=== PATIENT | male | born 1965 | race Caucasian/White ===

== ENCOUNTER 2024-11-06 12:05 | Observation (INO) ==
[2024-11-06] MEDS: NS 1,000 ML IV 1,000 ML IV SCH (14:00)
[2024-11-06 14:04] LABS: BASOPHILS % (AUTO) 0.3 % (0.2-1.0); EOSINOPHILS # (AUTO) 0.1 x10^3/uL (0.0-0.2); EOSINOPHILS % (AUTO) 0.7 % (0.9-2.9); HEMATOCRIT 45.8 % (42.0-54.0); HEMOGLOBIN 15.9 g/dL (13.5-18.0); LYMPHOCYTES # (AUTO) 2.5 X10^3/uL (1.3-2.9); LYMPHOCYTES % (AUTO) 27.2 % (21.0-51.0); MEAN CORPUSCULAR HEMOGLOBIN 32.3 pg (27.0-34.0); MEAN CORPUSCULAR HGB CONC 34.8 g/dL (33.0-35.0); MEAN CORPUSCULAR VOLUME 92.8 fL (80.0-100.0); MEAN PLATELET VOLUME 9.8 fL (7.4-11.0); MONOCYTES # (AUTO) 0.4 x10^3/uL (0.3-0.8); MONOCYTES % (AUTO) 4.7 % (0.0-13.0); NEUTROPHILS # (AUTO) 6.2 x10^3/uL (2.2-4.8); NEUTROPHILS % (AUTO) 67.1 % (42.0-75.0); PLATELET COUNT 85 X10^3/uL (150.0-450.0); RED BLOOD COUNT 4.94 X10^6/uL (4.7-6.0); RED CELL DISTRIBUTION WIDTH 13.5 % (11.6-16.5); WHITE BLOOD COUNT 9.2 X10^3/uL (3.6-10.0)
[2024-11-06] MEDS: CLEOCIN 600 MG IV PREMIX 600 MG/50 ML BAG IV SCH (14:14)
[2024-11-06 14:18] LABS: ALANINE AMINOTRANSFERASE 18 Units/L (12-78); ALBUMIN 3.5 g/dL (3.4-5.0); ALKALINE PHOSPHATASE 83 Units/L (46-116); ASPARTATE AMINO TRANSFERASE 15 Units/L (15-37); BLOOD UREA NITROGEN 16 mg/dL (7-18); CALCIUM 9.3 mg/dL (8.5-10.1); CARBON DIOXIDE 26.6 mmol/L (21-32); CHLORIDE 101 mmol/L (98-107); CREATININE 1.11 mg/dL (0.70-1.30); GLUCOSE 107 mg/dL (65-99); POTASSIUM 3.7 mmol/L (3.5-5.1); SODIUM 136 mmol/L (136-145); TOTAL PROTEIN 7.1 g/dL (6.4-8.2); eGFR NON BLACK RACES > 60 (>60)
--- NOTE | 2024-11-06 15:28 | CT ---
EXAM:SOFT TISSUE NECK W/O CONHISTORY:ABCESS TO NECK,; back of neck marked with bbCOMPARISON:CT neck 11/06/2020TECHNIQUE:Multiple axial images of the neck soft tissues were obtained without IV contrast. Coronal and sagittal reformats were made and reviewed. Dose reduction techniques included Automated Exposure Control (AEC) and adjustment of mA and kV.FINDINGS:A BB marker was placed at the site of abnormality.Increased density is seen in the subcutaneous tissue of the posterior upper neck at the site of BB markers. The finding likely represents superficial cellulitis. There is no emphysema in the soft tissues. No focal fluid collection to suggest an abscess.There is a small round fluid collection more laterally toward the left side within the subcutaneous tissue which measures about 13 mm. This was present in 2020 but is slightly larger, measuring 7 mm previously. This is likely an epidermal inclusion cyst.Adenoids, tonsils, soft palate, epiglottis, and prevertebral soft tissues are not enlarged. In general there is preservation of the pharyngeal and tracheal airways. Vocal cords are symmetric.Parotid glands and submandibular glands have normal size and density. The thyroid has a normal size and configuration. There is no neck mass or enlarged lymph nodes. There are numerous small lymph nodes bilaterally. These have decreased in size and number since the study from 2020.The lung apices are clear. Calcifications are seen in the right and left carotid arteries. No fluid in the sinuses or mucosal thickening to suggest sinusitis. There is no mastoid effusion.Degenerative spondylitic changes are present in the spine.IMPRESSION:1. Superficial cellulitis the posterior midline neck without abscessTHIS IS AN ELECTRONICALLY VERIFIED FINAL REPORT11/06/2024 3:13 PM - Electronically signed by Nathan Bonilla MD
[2024-11-06] MEDS: NORCO 7.5/325 MG TAB PO PRN (15:36)
--- NOTE | 2024-11-06 17:35 | DR.H&P ---
H&P History & Physical for Day of: H&P Date: 11/06/24 Chief Complaint Chief Complaint: PAINFUL SORES TO NECK WITH REDNESS AND BOIL ON CHEST History of Present Illness History of Present Illness: PT IS 59 WM, DIRECT ADMIT FROM DR ANDERSEN OFFICE WITH ABSCESS FORMATION TO BASE OF HAIRLINE AND POSTERIOR NECK WITH DIFFUSE REDNESS AND INCREASE WARMTH ONSET ABOUT 5 DAYS AGO. PT HAS ABSCESS TO ANTERIOR CHEST WALL WITH PURULENT DISCHARGE. PT CO LOW GRADE FEVER. PT WAS STARTED ON BACTRIM OVER THE WEEKEND. PT HAS PMH OF CLL. Past Medical History Past Medical History: Dyslipidemia Family History Family Medical History: Cancer, [place] and Heart Failure Social History Does patient currently use any type of tobacco product: Yes Type of Tobacco Use: Cigarettes How many years tobacco product used: 40 Alcohol Use: Occasionally Drug Use: None Medications Home Medications: Home Medications Medication Instructions Recorded Confirmed Type atorvastatin 10 mg tablet 10 mg PO QDAY 11/06/24 11/06/24 History fenofibrate micronized 134 mg 134 mg PO QDAY 11/06/24 11/06/24 History capsule hydrocodone 10 mg-acetaminophen 1 tab PO BID PRN 11/06/24 11/06/24 History 325 mg tablet meloxicam 15 mg tablet 15 mg PO QDAY 11/06/24 11/06/24 History zolpidem 12.5 mg tablet,extended 12.5 mg PO QPM PRN 11/06/24 11/06/24 History release,multiphase Allergies Allergies Allergy/AdvReac Type Severity Reaction Status Date / Time No Known Drug Allergies Allergy Verified 11/06/24 15:20 Labs 11/06/24 13:38 11/06/24 13:38 Labs: Laboratory WBC 9.2 X10^3/uL (3.6-10.0) 11/06/24 13:38 RBC 4.94 X10^6/uL (4.7-6.0) 11/06/24 13:38 Hgb 15.9 g/dL (13.5-18.0) 11/06/24 13:38 Hct 45.8 % (42.0-54.0) 11/06/24 13:38 MCV 92.8 fL (80.0-100.0) 11/06/24 13:38 MCH 32.3 pg (27.0-34.0) 11/06/24 13:38 MCHC 34.8 g/dL (33.0-35.0) 11/06/24 13:38 RDW 13.5 % (11.6-16.5) 11/06/24 13:38 Plt Count 85 X10^3/uL (150.0-450.0) L 11/06/24 13:38 MPV 9.8 fL (7.4-11.0) 11/06/24 13:38 Neut % (Auto) 67.1 % (42.0-75.0) 11/06/24 13:38 Lymph % (Auto) 27.2 % (21.0-51.0) 11/06/24 13:38 [place] % (Auto) 4.7 % (0.0-13.0) 11/06/24 13:38 Eos % (Auto) 0.7 % (0.9-2.9) L 11/06/24 13:38 Baso % (Auto) 0.3 % (0.2-1.0) 11/06/24 13:38 Neut # (Auto) 6.2 x10^3/uL (2.2-4.8) H 11/06/24 13:38 Lymph # (Auto) 2.5 X10^3/uL (1.3-2.9) 11/06/24 13:38 [place] # (Auto) 0.4 x10^3/uL (0.3-0.8) 11/06/24 13:38 Eos # (Auto) 0.1 x10^3/uL (0.0-0.2) 11/06/24 13:38 Baso # (Auto) 0.0 X10^3/uL (0.0-0.1) 11/06/24 13:38 Absolute Nucleated RBC 0.3 /100WBC 11/06/24 13:38 Sodium 136 mmol/L (136-145) 11/06/24 13:38 Corrected Sodium TNP 11/06/24 13:38 Potassium 3.7 mmol/L (3.5-5.1) 11/06/24 13:38 Chloride 101 mmol/L (98-107) 11/06/24 13:38 Carbon Dioxide 26.6 mmol/L (21-32) 11/06/24 13:38 BUN 16 mg/dL (7-18) 11/06/24 13:38 Creatinine 1.11 mg/dL (0.70-1.30) 11/06/24 13:38 Est GFR (MDRD) Af Amer > 60 (>60) 11/06/24 13:38 Est GFR (MDRD) Non-Af > 60 (>60) 11/06/24 13:38 Glucose 107 mg/dL (65-99) H 11/06/24 13:38 Calcium 9.3 mg/dL (8.5-10.1) 11/06/24 13:38 Corrected Calcium TNP 11/06/24 13:38 Total Bilirubin 0.20 mg/dL (0.2-1.0) 11/06/24 13:38 AST 15 Units/L (15-37) 11/06/24 13:38 ALT 18 Units/L (12-78) 11/06/24 13:38 Alkaline Phosphatase 83 Units/L (46-116) 11/06/24 13:38 Total Protein 7.1 g/dL (6.4-8.2) 11/06/24 13:38 Albumin 3.5 g/dL (3.4-5.0) 11/06/24 13:38 Globulin 3.6 g/dL (2.5-4.5) 11/06/24 13:38 Albumin/Globulin Ratio 1.0 Ratio (1.1-2.1) L 11/06/24 13:38 Review of Systems Constitutional: Fever, Chills and Weakness Eyes: No Symptoms Reported ENT: No Symptoms Reported Respiratory: No Symptoms Reported Cardiovascular: No Symptoms Reported Gastrointestinal: No Symptoms Reported Genitourinary: No Symptoms Reported Musculoskeletal: Back Pain Skin: Rash Neurological: No Symptoms Reported Physical Exam Vital Signs: Vital Signs Temperature 97.1 F Pulse Rate [Left Brachial] 88 Respiratory Rate 20 Respiratory Rate 18 Blood Pressure [Left Arm] 162/79 O2 Sat by Pulse Oximetry 99 Oriented: Normal Eyes: Normal Ear: Normal Nose: Normal Throat: Normal Respiratory: RLL Diminished and LLL Diminished Cardiovascular: Normal Auscultation: Bowel Sounds: Normal Palpation: Normal Tenderness: Normal Skin: Decreased [place], Red, Tender, Hot and Wound (OCCIPITAL, POST. CERVICAL A ND CENTRAL CHEST WALL) Musculoskeletal: Back:Lumbar Psychiatric: Anxiety Mood Description: Anxious Affect: Normal Speech Pattern: Clear and Appropriate Assessment/Plan (1) Cellulitis and abscess of head: Status: Acute Plan: ADMIT, BLOOD AND WOUND CULTURES ON ADMISSION IV HYDRATION PAIN CONTROL, IV ATBX THERAPY ADMISSION LABS, PT IS HOLD ORAL CHEMO DIRECTED BY ONCO. (2) Abscess of chest wall: Status: Acute (3) Cellulitis, neck: Status: Acute (4) CLL (chronic lymphocytic leukemia): Narrative Support Text: UNDER DR HARDY IN [place] Status: Acute
[2024-11-06] MEDS: NORCO 7.5/325 MG TAB ONE (18:18)
[2024-11-06] MEDS: NICOTINE PATCH TD SCH (19:16)
[2024-11-06] MEDS: CHECK PATCH XX SCH (21:04)
[2024-11-06] MEDS: ZOLPIDEM 12.5 MG PO SCH (21:52)
[2024-11-06] MEDS: EXT PO SCH (21:52)
[2024-11-07] MEDS ORDERED: TYLENOL 325 MG TAB PO PRN (03:21)
[2024-11-07] MEDS: NORCO 10/325 TAB PO PRN (03:42)
[2024-11-07 06:13] LABS: BASOPHILS % (AUTO) 0.4 % (0.2-1.0); EOSINOPHILS # (AUTO) 0.1 x10^3/uL (0.0-0.2); EOSINOPHILS % (AUTO) 1.3 % (0.9-2.9); HEMATOCRIT 42.5 % (42.0-54.0); HEMOGLOBIN 14.9 g/dL (13.5-18.0); LYMPHOCYTES # (AUTO) 1.1 X10^3/uL (1.3-2.9); LYMPHOCYTES % (AUTO) 16.6 % (21.0-51.0); MEAN CORPUSCULAR HEMOGLOBIN 32.3 pg (27.0-34.0); MEAN CORPUSCULAR HGB CONC 35.2 g/dL (33.0-35.0); MEAN CORPUSCULAR VOLUME 91.8 fL (80.0-100.0); MEAN PLATELET VOLUME 9.9 fL (7.4-11.0); MONOCYTES # (AUTO) 0.4 x10^3/uL (0.3-0.8); MONOCYTES % (AUTO) 6.6 % (0.0-13.0); NEUTROPHILS # (AUTO) 4.9 x10^3/uL (2.2-4.8); NEUTROPHILS % (AUTO) 75.1 % (42.0-75.0); PLATELET COUNT 79 X10^3/uL (150.0-450.0); RED BLOOD COUNT 4.62 X10^6/uL (4.7-6.0); RED CELL DISTRIBUTION WIDTH 13.1 % (11.6-16.5); WHITE BLOOD COUNT 6.6 X10^3/uL (3.6-10.0)
[2024-11-07 06:41] LABS: ALANINE AMINOTRANSFERASE 22 Units/L (12-78); ALKALINE PHOSPHATASE 74 Units/L (46-116); ASPARTATE AMINO TRANSFERASE 13 Units/L (15-37); BLOOD UREA NITROGEN 13 mg/dL (7-18); CALCIUM 8.8 mg/dL (8.5-10.1); CARBON DIOXIDE 24.3 mmol/L (21-32); CHLORIDE 102 mmol/L (98-107); COR CA(FOR HYPOALB) 9.6 mg/dL (8.5-10.1); CREATININE 0.95 mg/dL (0.70-1.30); GLUCOSE 100 mg/dL (65-99); POTASSIUM 3.6 mmol/L (3.5-5.1); SODIUM 135 mmol/L (136-145); TOTAL PROTEIN 6.4 g/dL (6.4-8.2); eGFR NON BLACK RACES > 60 (>60)
[2024-11-07] MEDS: LIPITOR TAB 10 MG PO SCH (08:51)
[2024-11-07] MEDS ORDERED: ULTRAM PO PRN (14:05)
[2024-11-07] MEDS: MORPHINE SULFATE INJ 2 MG INJ IVP PRN (14:29)
[2024-11-07] MEDS: KLONOPIN TAB 0.5 MG PO SCH (14:29)
[2024-11-07] MEDS: VANCOMYCIN IV *PREMIX 1 G/200 ML BAG 1 G/200 ML PIGGYBACK IV SCH (14:32)
[2024-11-07] MEDS: AMBIEN PO SCH (21:12)
[2024-11-08 06:17] LABS: BASOPHILS % (AUTO) 0.6 % (0.2-1.0); EOSINOPHILS # (AUTO) 0.1 x10^3/uL (0.0-0.2); EOSINOPHILS % (AUTO) 1.6 % (0.9-2.9); HEMATOCRIT 42.9 % (42.0-54.0); HEMOGLOBIN 15.1 g/dL (13.5-18.0); LYMPHOCYTES # (AUTO) 1.2 X10^3/uL (1.3-2.9); MEAN CORPUSCULAR HEMOGLOBIN 32.1 pg (27.0-34.0); MEAN CORPUSCULAR HGB CONC 35.2 g/dL (33.0-35.0); MEAN CORPUSCULAR VOLUME 91.4 fL (80.0-100.0); MEAN PLATELET VOLUME 9.5 fL (7.4-11.0); MONOCYTES # (AUTO) 0.6 x10^3/uL (0.3-0.8); MONOCYTES % (AUTO) 8.6 % (0.0-13.0); NEUTROPHILS # (AUTO) 5.4 x10^3/uL (2.2-4.8); NEUTROPHILS % (AUTO) 73.2 % (42.0-75.0); PLATELET COUNT 69 X10^3/uL (150.0-450.0); RED CELL DISTRIBUTION WIDTH 13.4 % (11.6-16.5); WHITE BLOOD COUNT 7.4 X10^3/uL (3.6-10.0)
[2024-11-08 06:32] LABS: ALANINE AMINOTRANSFERASE 25 Units/L (12-78); ALBUMIN 2.9 g/dL (3.4-5.0); ALKALINE PHOSPHATASE 81 Units/L (46-116); ASPARTATE AMINO TRANSFERASE 18 Units/L (15-37); BLOOD UREA NITROGEN 12 mg/dL (7-18); CALCIUM 8.9 mg/dL (8.5-10.1); CARBON DIOXIDE 25.4 mmol/L (21-32); CHLORIDE 102 mmol/L (98-107); COR CA(FOR HYPOALB) 9.8 mg/dL (8.5-10.1); CREATININE 1.01 mg/dL (0.70-1.30); GLUCOSE 102 mg/dL (65-99); MAGNESIUM 1.7 mg/dL (2.0-2.9); SODIUM 134 mmol/L (136-145); TOTAL PROTEIN 6.3 g/dL (6.4-8.2); eGFR NON BLACK RACES > 60 (>60)
[2024-11-08] MEDS: NOZIN NASAL SANITIZER TP ONE (06:47)
[2024-11-08] MEDS: HIBICLENS WASH EXT ONE (06:47)
[2024-11-08] MEDS ORDERED: CONSULT PHARMACY - POTASSIUM & MAGNESIUM XX SCH (07:00)
[2024-11-08] MEDS: NS 1,000 ML IV 1,000 ML with MAGNESIUM SULFATE 50% INJ VIAL 2 G IV SCH (08:30)
[2024-11-08] MEDS: XYLOCAINE 1 % (PLAIN) ONE (14:26)
[2024-11-08] MEDS: BETADINE SOLN ONE (14:26)
[2024-11-08] MEDS: PHARMACY COMMENT IV NR (20:42)
[2024-11-08] MEDS: NORCO 10/325 TAB PO ONE (21:05)
[2024-11-08] MEDS: VANCOMYCIN HCL 250 MG, VANCOMYCIN HCL 1 G in D5W 250 ML IV 250 ML IV SCH (21:33)
[2024-11-09 06:26] LABS: BASOPHILS # (AUTO) 0.2 X10^3/uL (0.0-0.1); BASOPHILS % (AUTO) 1.8 % (0.2-1.0); EOSINOPHILS # (AUTO) 0.3 x10^3/uL (0.0-0.2); EOSINOPHILS % (AUTO) 2.9 % (0.9-2.9); HEMATOCRIT 43.3 % (42.0-54.0); HEMOGLOBIN 15.3 g/dL (13.5-18.0); LYMPHOCYTES # (AUTO) 2.5 X10^3/uL (1.3-2.9); LYMPHOCYTES % (AUTO) 27.4 % (21.0-51.0); MEAN CORPUSCULAR HEMOGLOBIN 32.2 pg (27.0-34.0); MEAN CORPUSCULAR HGB CONC 35.3 g/dL (33.0-35.0); MEAN CORPUSCULAR VOLUME 91.4 fL (80.0-100.0); MEAN PLATELET VOLUME 9.7 fL (7.4-11.0); MONOCYTES # (AUTO) 0.8 x10^3/uL (0.3-0.8); MONOCYTES % (AUTO) 8.6 % (0.0-13.0); NEUTROPHILS # (AUTO) 5.5 x10^3/uL (2.2-4.8); NEUTROPHILS % (AUTO) 59.3 % (42.0-75.0); PLATELET COUNT 79 X10^3/uL (150.0-450.0); RED BLOOD COUNT 4.74 X10^6/uL (4.7-6.0); RED CELL DISTRIBUTION WIDTH 13.5 % (11.6-16.5); WHITE BLOOD COUNT 9.2 X10^3/uL (3.6-10.0)
[2024-11-09 06:38] LABS: ALANINE AMINOTRANSFERASE 21 Units/L (12-78); ALBUMIN 2.9 g/dL (3.4-5.0); ALKALINE PHOSPHATASE 80 Units/L (46-116); ASPARTATE AMINO TRANSFERASE 17 Units/L (15-37); BLOOD UREA NITROGEN 15 mg/dL (7-18); CALCIUM 8.6 mg/dL (8.5-10.1); CARBON DIOXIDE 25.4 mmol/L (21-32); CHLORIDE 104 mmol/L (98-107); COR CA(FOR HYPOALB) 9.5 mg/dL (8.5-10.1); CREATININE 0.92 mg/dL (0.70-1.30); GLUCOSE 96 mg/dL (65-99); POTASSIUM 4.4 mmol/L (3.5-5.1); SODIUM 139 mmol/L (136-145); TOTAL PROTEIN 6.2 g/dL (6.4-8.2); eGFR NON BLACK RACES > 60 (>60)
[2024-11-09] MEDS: MAGNESIUM SULFATE 50% INJ VIAL ONE (07:01)
[2024-11-09 07:37] VITALS: BMI 25.5
--- NOTE | 2024-11-09 12:32 | DR.PROGNOT ---
HOSPITAL PROGRESS NOTE Progress Note for Day of: Progress Note Date: 11/09/24 Chief Complaint Chief Complaint: Patient had debridement and drainage of anterior chest wall abscess which was packed with iodoform packing. Repeated culture from the abscess is pending. There was some drainage from the posterior neck as well, no abscess formation. Last culture was MRSA. Past Medical Family Social History Allergies: Allergies No Known Drug Allergies Allergy (Verified 11/06/24 15:20) Vital Signs Vital Signs: Vital Signs Temperature 98.1 F Pulse Rate [Left Brachial] 90 Respiratory Rate 20 Respiratory Rate 18 Respiratory Rate 21 Respiratory Rate 19 Respiratory Rate 18 Blood Pressure [Right Arm] 137/74 O2 Sat by Pulse Oximetry 94 Physical Exam Oriented: Normal Eyes: Normal Ear: Normal Nose: Normal Throat: Normal Cardiovascular: Normal GI:Auscultation: Normal GI:Palpation: Normal GI: Tenderness: Normal Skin: Decreased [place], Red, Tender, Hot and Wound (OCCIPITAL, POST. CERVICAL AND CENTRAL CHEST WALL) Musculoskeletal: Back:Lumbar Psychiatric: Anxiety Mood Description: Calm Affect: Normal Speech Pattern: Clear and Appropriate Laboratory and Diagnostics 11/09/24 05:23 11/09/24 05:23 Labs: 11/08/24 13:55 Chest Wound Culture - Preliminary 11/06/24 14:35 Chest Wound Gram Stain - Final 11/06/24 14:35 Chest Wound Culture - Final Methicillin Resis Staph Aureus 11/06/24 14:35 Neck Wound Gram Stain - Final 11/06/24 14:35 Neck Wound Culture - Final Methicillin Resis Staph Aureus 11/06/24 13:47 Blood Blood Culture - Preliminary 11/06/24 13:38 Blood Blood Culture - Preliminary Laboratory WBC 9.2 X10^3/uL (3.6-10.0) 11/09/24 05:23 RBC 4.74 X10^6/uL (4.7-6.0) 11/09/24 05:23 Hgb 15.3 g/dL (13.5-18.0) 11/09/24 05:23 Hct 43.3 % (42.0-54.0) 11/09/24 05:23 MCV 91.4 fL (80.0-100.0) 11/09/24 05:23 MCH 32.2 pg (27.0-34.0) 11/09/24 05:23 MCHC 35.3 g/dL (33.0-35.0) H 11/09/24 05:23 RDW 13.5 % (11.6-16.5) 11/09/24 05:23 Plt Count 79 X10^3/uL (150.0-450.0) L 11/09/24 05:23 MPV 9.7 fL (7.4-11.0) 11/09/24 05:23 Neut % (Auto) 59.3 % (42.0-75.0) 11/09/24 05:23 Lymph % (Auto) 27.4 % (21.0-51.0) 11/09/24 05:23 [place] % (Auto) 8.6 % (0.0-13.0) 11/09/24 05:23 Eos % (Auto) 2.9 % (0.9-2.9) 11/09/24 05:23 Baso % (Auto) 1.8 % (0.2-1.0) H 11/09/24 05:23 Neut # (Auto) 5.5 x10^3/uL (2.2-4.8) H 11/09/24 05:23 Lymph # (Auto) 2.5 X10^3/uL (1.3-2.9) 11/09/24 05:23 [place] # (Auto) 0.8 x10^3/uL (0.3-0.8) 11/09/24 05:23 Eos # (Auto) 0.3 x10^3/uL (0.0-0.2) H 11/09/24 05:23 Baso # (Auto) 0.2 X10^3/uL (0.0-0.1) H 11/09/24 05:23 Absolute Nucleated RBC 0.4 /100WBC 11/09/24 05:23 Sodium 139 mmol/L (136-145) 11/09/24 05:23 Corrected Sodium TNP 11/09/24 05:23 Potassium 4.4 mmol/L (3.5-5.1) 11/09/24 05:23 Chloride 104 mmol/L (98-107) 11/09/24 05:23 Carbon Dioxide 25.4 mmol/L (21-32) 11/09/24 05:23 BUN 15 mg/dL (7-18) 11/09/24 05:23 Creatinine 0.92 mg/dL (0.70-1.30) 11/09/24 05:23 Est GFR (MDRD) Af Amer > 60 (>60) 11/09/24 05:23 Est GFR (MDRD) Non-Af > 60 (>60) 11/09/24 05:23 Glucose 96 mg/dL (65-99) 11/09/24 05:23 Calcium 8.6 mg/dL (8.5-10.1) 11/09/24 05:23 Corrected Calcium 9.5 mg/dL (8.5-10.1) 11/09/24 05:23 Magnesium 2.0 mg/dL (2.0-2.9) 11/09/24 05:23 Total Bilirubin 0.20 mg/dL (0.2-1.0) 11/09/24 05:23 AST 17 Units/L (15-37) 11/09/24 05:23 ALT 21 Units/L (12-78) 11/09/24 05:23 Alkaline Phosphatase 80 Units/L (46-116) 11/09/24 05:23 Total Protein 6.2 g/dL (6.4-8.2) L 11/09/24 05:23 Albumin 2.9 g/dL (3.4-5.0) L 11/09/24 05:23 Globulin 3.3 g/dL (2.5-4.5) 11/09/24 05:23 Albumin/Globulin Ratio 0.9 Ratio (1.1-2.1) L 11/09/24 05:23 Random Vancomycin 6.3 ug/mL 11/08/24 19:59 Assessment and Plan 1: Infected cyst anterior chest wall with abscess formation, status post debridement and drainage . MRSA infection. Same IV vancomycin. Will follow-up in the office in 10 days.
[2024-11-09] MEDS: VANCOMYCIN IV *PREMIX 1 G/200 ML BAG 1 G/200 ML PIGGYBACK IV SCH (14:35)
[2024-11-09] MEDS: COLACE CAP 100 MG PO SCH (20:34)
[2024-11-10 06:20] LABS: BASOPHILS # (AUTO) 0.3 X10^3/uL (0.0-0.1); BASOPHILS % (AUTO) 3.1 % (0.2-1.0); EOSINOPHILS # (AUTO) 0.3 x10^3/uL (0.0-0.2); EOSINOPHILS % (AUTO) 2.7 % (0.9-2.9); HEMATOCRIT 44.6 % (42.0-54.0); HEMOGLOBIN 15.5 g/dL (13.5-18.0); LYMPHOCYTES # (AUTO) 3.9 X10^3/uL (1.3-2.9); MEAN CORPUSCULAR HEMOGLOBIN 31.7 pg (27.0-34.0); MEAN CORPUSCULAR HGB CONC 34.8 g/dL (33.0-35.0); MEAN CORPUSCULAR VOLUME 91.3 fL (80.0-100.0); MEAN PLATELET VOLUME 9.4 fL (7.4-11.0); MONOCYTES # (AUTO) 0.8 x10^3/uL (0.3-0.8); MONOCYTES % (AUTO) 7.4 % (0.0-13.0); NEUTROPHILS # (AUTO) 5.2 x10^3/uL (2.2-4.8); NEUTROPHILS % (AUTO) 49.8 % (42.0-75.0); PLATELET COUNT 99 X10^3/uL (150.0-450.0); RED BLOOD COUNT 4.89 X10^6/uL (4.7-6.0); RED CELL DISTRIBUTION WIDTH 13.3 % (11.6-16.5); WHITE BLOOD COUNT 10.5 X10^3/uL (3.6-10.0)
[2024-11-10 06:46] LABS: ALANINE AMINOTRANSFERASE 31 Units/L (12-78); ALKALINE PHOSPHATASE 79 Units/L (46-116); ASPARTATE AMINO TRANSFERASE 20 Units/L (15-37); BLOOD UREA NITROGEN 14 mg/dL (7-18); CALCIUM 8.7 mg/dL (8.5-10.1); CARBON DIOXIDE 27.1 mmol/L (21-32); CHLORIDE 104 mmol/L (98-107); COR CA(FOR HYPOALB) 9.5 mg/dL (8.5-10.1); CREATININE 0.89 mg/dL (0.70-1.30); GLUCOSE 101 mg/dL (65-99); POTASSIUM 4.3 mmol/L (3.5-5.1); SODIUM 140 mmol/L (136-145); TOTAL PROTEIN 6.3 g/dL (6.4-8.2); eGFR NON BLACK RACES > 60 (>60)
[2024-11-10 08:46] VITALS: RESP 20
[2024-11-10] MEDS ORDERED: HIBICLENS WASH ONE (09:36)
[2024-11-10 09:42] VITALS: BP 142/80; PULSE 75; TEMP 98; O2SAT 94
[2024-11-10] MEDS ORDERED: PHARMACY COMMENT IV ONE (13:00)
== END 2024-11-10 10:02 | disposition home or self-care (01) ==
LOC: MED/SURG
PROVIDERS: ADMIT Internal Medicine; ATTEND Internal Medicine